=== PATIENT | female | born 1975 | race Caucasian/White ===

== ENCOUNTER → 2019-01-29 | Outpatient (CLI) | payer OTHER ==
--- NOTE | 2019-01-29 15:50 | KCIC ---
Limited abdominal ultrasound HISTORY: Possible anterior abdominal wall hernia. Anterior abdominal wall pain. TECHNIQUE: Grayscale imaging is performed at the area of concern. FINDINGS: Study may be limited by large body habitus. No evidence of herniation through the anterior abdominal wall at the area of concern. No abnormal soft tissue fluid collection is seen. IMPRESSION: No sonographic abnormality at the area of concern. Electronically signed by: Basim Pan MD (01/29/2019 3:47 PM) [facility]
--- NOTE | 2019-02-06 10:08 | KCIC ---
Bilateral digital screening mammograms with 3-D tomosynthesis: Reason for examination: Routine screening. No previous examinations have been received for comparison. An addendum report will be issued if previous films can be obtained. Bilateral mammograms in CC and oblique projections were obtained with 2-D imaging and 3-D tomosynthesis imaging on a Siemens Inspiration unit and reviewed on the workstation. Interpretation was made with the benefit of CAD. The skin and nipples show no abnormalities. No abnormal axillary lymph nodes are seen. The breast parenchyma shows scattered fatty and fibroglandular density. (Breast density: Category B.) There are no dominant masses, suspicious calcifications or architectural distortion. Impression: No evidence of malignancy. Recommend routine screening. BI-RAD Category 1: Negative. "Our facility is accredited by the [employer] Mammography Program." This patient's information has been entered into a reminder system for the patient to be notified with the results of her examination and a target date for the next mammogram. Electronically signed by: Brandie Monahan MD (02/06/2019 10:05 AM) [id number]
== END | disposition home or self-care (01) ==
LOC: KCIC US 12:22
PROVIDERS: ATTEND Family Medicine
DX: Z12.31 Encounter for screening mammogram for malignant neoplasm of breast (principal); K43.9 Ventral hernia without obstruction or gangrene
CPT/HCPCS: 76705; 77063; 77067